=== PATIENT | female | born 1960 | race Caucasian/White ===

== ENCOUNTER → 2017-11-17 21:26 | Outpatient (CLI) | payer BC, SELFPAY | PROVIDERS: Family Provider Family Medicine; PCP Family Medicine; Visit Provider Obstetrics & Gynecology | DX: Z12.4 Encounter for screening for malignant neoplasm of cervix (principal) ==

== ENCOUNTER → 2017-12-01 08:38 | Outpatient (CLI) | payer BC, SELFPAY ==
--- NOTE | 2017-12-01 08:40 | US_ITS ---
STUDY: ULTRASOUND OF THE FEMALE PELVIS - COMPLETE REASON FOR EXAM: Female, 57 years old. Possible adnexal mass. LMP: The patient is perimenopausal. TECHNIQUE: Transabdominal and Transvaginal TECHNICAL QUALITY: Adequate. COMPARISON: None. FINDINGS: The uterus is anteverted and is in a midline position. The uterus measures 7.3 cm x 4.4 cm x 2.7 cm. Normal uterine cervix. The endometrium measures 4.0 mm in thickness, and is hyperechoic. There is no demonstrated endometrial mass. There is a 1.2 cm x 0.9 cm x 0.8 cm fibroid in the subendometrial region of the fundal portion of the uterus. 5 mm cluster of calcifications is seen in the lower uterine segment. I.U.D. - The patient does not have an I.U.D. The right ovary is visualized. The right ovary measures 2.9 cm x 2.0 cm x 1.2 cm. There is no right ovarian cyst or ovarian mass. There is no visualized right adnexal mass or complex lesion. There is normal arterial and normal venous vascularity. The left ovary is visualized. The left ovary measures 3.2 cm x 1.4 cm x 1.3 cm. There is no left ovarian cyst or ovarian mass. There is no visualized left adnexal mass or complex lesion. There is normal arterial and normal venous vascularity. There is no fluid in the cul-de-sac. The pre void volume of the bladder was 127.1 ml. Polycystic ovary disease: No. US/Transvaginal Non- IMPRESSION: Small uterine fibroid. No adnexal masses seen. Electronically Signed: Eric Dash MD at 15:52 EST Tel [phone], Service support ,
--- NOTE | 2017-12-01 08:40 | US_ITS ---
STUDY: ULTRASOUND OF THE FEMALE PELVIS - COMPLETE REASON FOR EXAM: Female, 57 years old. Possible adnexal mass. LMP: The patient is perimenopausal. TECHNIQUE: Transabdominal and Transvaginal TECHNICAL QUALITY: Adequate. COMPARISON: None. FINDINGS: The uterus is anteverted and is in a midline position. The uterus measures 7.3 cm x 4.4 cm x 2.7 cm. Normal uterine cervix. The endometrium measures 4.0 mm in thickness, and is hyperechoic. There is no demonstrated endometrial mass. There is a 1.2 cm x 0.9 cm x 0.8 cm fibroid in the subendometrial region of the fundal portion of the uterus. 5 mm cluster of calcifications is seen in the lower uterine segment. I.U.D. - The patient does not have an I.U.D. The right ovary is visualized. The right ovary measures 2.9 cm x 2.0 cm x 1.2 cm. There is no right ovarian cyst or ovarian mass. There is no visualized right adnexal mass or complex lesion. There is normal arterial and normal venous vascularity. The left ovary is visualized. The left ovary measures 3.2 cm x 1.4 cm x 1.3 cm. There is no left ovarian cyst or ovarian mass. There is no visualized left adnexal mass or complex lesion. There is normal arterial and normal venous vascularity. There is no fluid in the cul-de-sac. The pre void volume of the bladder was 127.1 ml. Polycystic ovary disease: No. US/Pelvic (Non ) IMPRESSION: Small uterine fibroid. No adnexal masses seen. Electronically Signed: Eric Dash MD at 15:52 EST Tel [phone], Service support ,
== END ==
PROVIDERS: Family Provider Family Medicine; PCP Family Medicine; Visit Provider Obstetrics & Gynecology
DX: N94.9 Unspecified condition associated with female genital organs and menstrual cycle (principal)
CPT/HCPCS: 76830; 76856; 93976

== ENCOUNTER → 2017-12-08 07:00 | Outpatient (CLI) | payer BC, SELFPAY ==
--- NOTE | 2017-12-08 07:06 | HPBI_ITS ---
MAMMOGRAPHY - BILATERAL SCREENING REASON FOR EXAM: Female, 57 years old. Routine annual screening examination. PERTINENT HISTORY: Non-contributory. TECHNIQUE: Digital bilateral breast solitario (3D mammographic acquisition) in the CC and MLO projections. 2-D mediolateral oblique (MLO) and craniocaudad (CC) views of both breasts were obtained. CAD: Full Field Digital Mammography with Computer Added Detection was performed. COMPARISON: None. Baseline examination. FINDINGS: Breast Composition: There are scattered areas of fibroglandular density. There are no dominant masses or suspicious calcifications. No other significant abnormalities are identified. HPBI/SCREENING MAMM (CAD), BILAT IMPRESSION: Negative screening mammogram. Yearly followup mammogram recommended. (A) ASSESSMENT CATEGORY: BIRADS Category 1: Negative. A letter regarding these results will be sent to the patient by the facility within 30 days. Approximately 10% of breast cancers are not detected by mammography. A normal mammogram should not delay biopsy of a clinically suspicious abnormality. [id number] Electronically Signed: Eric Dash MD at 8:19 EST Tel [phone], Service support ,
== END ==
PROVIDERS: Family Provider Family Medicine; PCP Family Medicine; Visit Provider Obstetrics & Gynecology
DX: Z01.411 Encounter for gynecological examination (general) (routine) with abnormal findings (principal); Z12.31 Encounter for screening mammogram for malignant neoplasm of breast
CPT/HCPCS: 77063; 77067

== ENCOUNTER 2017-12-16 12:05 | Day surgery (SDC) | payer BC, SELFPAY ==
[2017-12-16] VITALS (7 sets, daily range): BP systolic 122–141; BP diastolic 75–85; PULSE 69–81; RESP 14–18; TEMP 36.2–36.8; O2SAT 92–99; BMI 26.7
[2017-12-16] MEDS: Cefazolin 2 GM in 0.9% Normal Saline 100 ML IV (14:32)
[2017-12-16] MEDS: Bupiv/Epi 0.5% Mpf 30 ML Vial (15:19)
[2017-12-16] MEDS: Mupirocin Ointment 22gm Tube 1 APPLIC (15:41)
--- NOTE | 2017-12-16 15:47 | PCM.DC.ORTHO ---
Discharge Diet: No Restrictions - Remove dressings in 4 days and apply Band-Aids to incision sites, weight-bear as tolerated right leg, elevate ice ankle pumps, pain medication as tolerated, call with concerns, follow-up in 2 weeks, may shower in 4 days and get incision wet Discharge Activity: May Not Drive May shower in (days): 1 Ice area for (Minutes): 20 - Every hour while awake. Weight Bearing Status: Weight bearing as tolerated Keep extremity elevated above heart level: Operative Extremity Call your doctor if your incision/area has: Continuous Slow Oozing, Sudden Increased Bleeding, Increased Pain/ Swelling, Increased Redness, Foul Smelling Discharge Call your doctor if you observe: Fever of 101 or Higher, Coldness, Increased Pain, Numbness or Tingling, Change in Color, Calf discomfort Allergies/Adverse Reactions: Allergies Sulfa (Sulfonamide Antibiotics) Allergy (Mild, Verified 12/07/17 15:46) Upset Stomach Medications to take at Discharge Multivitamins,Therapeutic [Multivitamin] 1 tab PO DAILY 11/15/13 Vitamin D3 2 tab PO DAILY 11/15/13 Atorvastatin Calcium [Lipitor] 10 mg PO QHS 12/05/14 aspirin 81 mg chewable tablet 81 mg PO DAILY 11/17/17 esomeprazole magnesium 40 mg capsule,delayed release 40 mg PO DAILY 30 Days #30 11/17/17 metoprolol tartrate 25 mg tablet 25 mg PO BID 90 Days #180 11/17/17 venlafaxine ER 75 mg capsule,extended release 24 hr 75 mg PO QHS #30 cap 11/17/17 Oxycodone HCl/Acetaminophen [Percocet 5/325] 1 - 2 tablet PO Q6H PRN PRN 5 Days #60 tablet 12/16/17 The following prescriptions were given: Oxycodone HCl/Acetaminophen [Percocet 5/325] 1 - 2 tablet PO Q6H PRN PRN 5 Days #60 tablet PRN Reason: Pain Primary Care Physician: Tahira Pacheco MD [Primary Care Provider] - Please Follow Up With: Carla Phoenix, - [phone]
--- NOTE | 2017-12-16 15:53 | OP.PCM_ITS ---
Report of Operation Date of Procedure: 12/16/17 Pre-Operative Diagnosis: right knee medial and lateral meniscus tears, extensive synovitis Post-Operative Diagnosis: same Surgery/Procedure Performed:: sark, pmm, plm, extensive synovectomy Type of Anesthesia:: General Anesthesiologist: Arturo Dinero Estimated Blood Loss (mL): none Fluids Replaced: 1100ml lr Description of Procedure: Preoperative note 57-year-old patient with right knee pain clicking instability. MRI confirms lateral meniscus medial meniscus tears. Failed patient failed conservative treatment elected proceed with right knee arthroscopy repair is indicated. Risks benefits and alternatives surgery were discussed with patient. Risks including but not limited to blood loss, blood clot, infection, neurovascular injury, failure procedure, loss of life and loss of limb. Patient is aware like proceed with right knee arthroscopy repair is indicated. Operative note Patient seen and examined preoperative holding area. Right knee was marked. Patient brought to the operating room placed supine on the operating table. Sign, anesthesia, antibiotics were administered. The right leg was prepped and draped in usual sterile fashion with a tourniquet around her upper thigh. All bony prominences well-padded SCDs placed on her contralateral limb. We marked out our portals for our anterolateral anteromedial portal placement. Leg was elevated exsanguinated tourniquet was raised her pressure of 275 torr. Timeout was performed. We then began with our diagnostic arthroscopy. We created an anterior left lateral portal and were able to visualize patella femoral joint. The cartilage surfaces were intact. We then moved to the medial joint line. We created an anterior medial portal under direct visualization. We then probed the medial meniscus we had a little bit of fraying on the root which was gently debrided back with a shaver and a basket. The rest the meniscus was intact. The medial femoral condyle medial tibial plateau were basically intact there is a little bit of fibrillated changes in medial tibial plateau. ACL PCL were present within the notch. The patient had a lateral discoid meniscus with a tear extending from the mid body anterior. We use a combination of a biter and a shaver to resect the unstable piece of the discoid to a stable remnant. We then reinserted the probe in both the medial lateral meniscus to ensure that there was no further instability of the meniscus and there he has stable rim the remaining which we did have. There is extensive synovitis in the anterior medial anterolateral gutters which was removed with a shaver. There were no loose bodies in the gutters. We then irrigated the knee with copious amounts of sterile saline. The portals were closed with interrupted 4-0 nylon stitches. Sterile dressings were applied the tourniquet was deflated for total working time of 40 minutes. The patient tolerated procedure well there are no complications. Patient was transferred to recovery room in stable condition. Postoperative note Weight-bear as tolerated Hospital pharmacy has prescriptions as Call with increased pain numbness tingling further issues arise Follow-up in 2 weeks Patient was given a This note was generated with [employer] dictation software. It may contain incorrect words, spelling, and punctuation that were not noted in checking the note before signing.
== END 2017-12-16 18:32 | disposition home or self-care (01) ==
LOC: SDC 12:06 → AC 12:08
PROVIDERS: Family Provider Family Medicine; PCP Family Medicine; Visit Provider Orthopaedic Surgery
PROC: (CPT 29870; principal; 2017-12-16 13:25)
DX: M23.203 Derangement of unspecified medial meniscus due to old tear or injury, right knee (principal); M23.261 Derangement of other lateral meniscus due to old tear or injury, right knee; M65.88 Other synovitis and tenosynovitis, other site; F41.9 Anxiety disorder, unspecified; I10 Essential (primary) hypertension; G25.81 Restless legs syndrome; K21.9 Gastro-esophageal reflux disease without esophagitis; E78.00 Pure hypercholesterolemia, unspecified; Z79.82 Long term (current) use of aspirin; Z79.899 Other long term (current) drug therapy; Z87.891 Personal history of nicotine dependence
CPT/HCPCS: 01400; 29880; J7120; J2405

== ENCOUNTER → 2018-04-13 08:38 | Outpatient (CLI) | payer BC, SELFPAY ==
--- NOTE | 2018-04-13 08:45 | RAD_ITS ---
STUDY: X-RAY - PELVIS AND LEFT HIP REASON FOR EXAM: Left hip pain, no specific injury. TECHNIQUE: Radiological exam, hip, unilateral, with pelvis when performed; 2 or 3 views. COMPARISON: None. FINDINGS: There is a small pelvic phlebolith. Normal bilateral iliac wings, sacroiliac joints and visualized sacrum. Normal bilateral superior and inferior pubic rami. Normal pubic symphysis. Normal bilateral ischial tuberosities. Normal visualized femoral head. Normal acetabulum. Normal hip joint. RAD/Hip 2-3 Views with Pelvis IMPRESSION: Normal x-ray examination of the pelvis and left hip. Electronically Signed: Mahesh Chanel MD at 10:16 EDT Tel , Service support ,
== END ==
PROVIDERS: Family Provider Family Medicine; PCP Family Medicine; Visit Provider Orthopaedic Surgery
DX: M25.552 Pain in left hip (principal)
CPT/HCPCS: 73502

== ENCOUNTER → 2019-03-29 | Outpatient (CLI) | payer BC, SELFPAY ==
[2019-01-11 11:14] VITALS: BMI 27.4
--- NOTE | 2019-03-29 13:20 | BI_ITS ---
MAMMOGRAPHY - BILATERAL SCREENING 3-D TOMOSYNTHESIS REASON FOR EXAM: Female, 58 years old. Bilateral Screening 3-D tomosynthesis PERTINENT HISTORY: No significant family history. TECHNIQUE: 2-D mammograms and 3-D Tomosynthesis of the breast (s) were performed. CAD was performed. COMPARISON: December 08, 2017 FINDINGS: The breast composition is almost entirely fat. Scattered benign calcifications are seen. No dense spiculated masses or suspicious microcalcifications are identified. No architectural distortion is identified. There is no skin thickening or retraction. There has been no significant change since the prior study. BI/SCREEN MAMM (CAD) W/LARRY BILAT IMPRESSION: No mammographic signs of malignancy. Routine yearly mammograms recommended. ASSESSMENT CATEGORY: BIRADS Category 2: Benign. A letter regarding these results will be sent to the patient by the facility within 30 days. FOLLOW UP RECOMMENDATION: Yearly follow up mammogram recommended. (A) Approximately 10% of breast cancers are not detected by mammography. A normal mammogram should not delay biopsy of a clinically suspicious abnormality. Electronically Signed: Jonathan Wilson MD at 17:42 EDT , Service support ,
== END | disposition home or self-care (01) ==
LOC: OPBI 13:19
PROVIDERS: Family Provider Family Medicine; PCP Family Medicine; Referring Provider Obstetrics & Gynecology; Visit Provider Obstetrics & Gynecology
DX: Z12.31 Encounter for screening mammogram for malignant neoplasm of breast (principal)
CPT/HCPCS: 77063; 77067

== ENCOUNTER → 2020-04-03 10:04 | Outpatient (CLI) | payer BC, SELFPAY ==
[2019-01-11 11:14] VITALS: BMI 27.4
[2020-02-07 14:03] VITALS: BMI 27.4
--- NOTE | 2020-04-03 10:05 | BI_ITS ---
MAMMOGRAPHY - BILATERAL SCREENING REASON FOR EXAM: Female, 59 years old. Routine annual screening examination. PERTINENT HISTORY: Non-contributory. TECHNIQUE: Digital bilateral breast larry (3D mammographic acquisition) in the CC and MLO projections. 2-D mediolateral oblique (MLO) and craniocaudad (CC) views of both breasts were obtained. CAD: Full Field Digital Mammography with Computer Added Detection was performed. COMPARISON: Comparison is made with prior examination dated March 29, 2019 and December 08, 2017. FINDINGS: Breast Composition: There are scattered areas of fibroglandular density. There are no dominant masses or suspicious calcifications. Stable benign-appearing bilateral axillary lymph nodes. No other significant abnormalities are identified. There has been no significant change since the prior study. BI/SCREEN MAMM (CAD) W/LARRY BILAT IMPRESSION: Stable bilateral screening mammogram. Yearly follow-up mammogram recommended. (A) ASSESSMENT CATEGORY: BIRADS Category 2: Benign. A letter regarding these results will be sent to the patient by the facility within 30 days. Approximately 10% of breast cancers are not detected by mammography. A normal mammogram should not delay biopsy of a clinically suspicious abnormality. [id number] Electronically Signed: Eric Dash, at 8:25 EDT , Service support ,
== END ==
PROVIDERS: Family Provider Family Medicine; PCP Family Medicine; Referring Provider Obstetrics & Gynecology; Visit Provider Obstetrics & Gynecology
DX: Z12.31 Encounter for screening mammogram for malignant neoplasm of breast (principal)
CPT/HCPCS: 77063; 77067

== ENCOUNTER → 2021-05-28 09:56 | Outpatient (CLI) | payer BC, SELFPAY ==
--- NOTE | 2021-05-28 09:58 | BI_ITS ---
MAMMOGRAPHY - BILATERAL SCREENING REASON FOR EXAM: Female, 60 years old. Routine annual screening examination. PERTINENT HISTORY: Non-contributory. TECHNIQUE: Digital bilateral breast larry (3D mammographic acquisition) in the CC and MLO projections. 2-D mediolateral oblique (MLO) and craniocaudad (CC) views of both breasts were obtained. CAD: Full Field Digital Mammography with Computer Added Detection was performed. COMPARISON: Comparison is made with prior study dated 04/03/2020 and 03/29/2019. FINDINGS: Breast Composition: There are scattered areas of fibroglandular density. There are no dominant masses or suspicious calcifications. Stable small benign appearing bilateral axillary lymph nodes. No other significant abnormalities are identified. There has been no significant change since the prior study. BI/SCRN MAMM (CAD)W/LARRY BILAT IMPRESSION: Stable bilateral screening mammogram. Yearly follow-up mammogram recommended. (A) ASSESSMENT CATEGORY: BIRADS Category 2: Benign. A letter regarding these results will be sent to the patient by the facility within 30 days. Approximately 10% of breast cancers are not detected by mammography. A normal mammogram should not delay biopsy of a clinically suspicious abnormality. [id number] Electronically Signed: Eric Dash MD at 11:03 EDT , Service support ,
== END ==
PROVIDERS: PCP Family Medicine; Referring Provider Nurse Practitioner Women's Health; Visit Provider Nurse Practitioner Women's Health
DX: Z12.31 Encounter for screening mammogram for malignant neoplasm of breast (principal)
CPT/HCPCS: 77063; 77067

== ENCOUNTER 2021-12-31 10:26 | Outpatient (CLI) | payer BC, SELFPAY ==
[2021-12-31 12:27] LABS: Erythrocyte Sedimentation Rate 12 mm/hr (0-30)
[2021-12-31 13:08] LABS: Rheumatoid Factor < 10.0 IU/mL (<15)
[2022-01-01 21:27] LABS: Anti-Nuclear Antibody Test Negative (.)
[2022-01-06 14:31] LABS: HLA B27 Negative (.)
== END 2021-12-31 23:59 | disposition home or self-care (01) ==
LOC: MTLAB 10:28
PROVIDERS: PCP Family Medicine; Referring Provider Podiatrist; Visit Provider Podiatrist
DX: M06.9 Rheumatoid arthritis, unspecified (principal)
CPT/HCPCS: 36415; 81374; 84550; 85652; 86038; 86140; 86431

== ENCOUNTER → 2022-07-29 | Outpatient (CLI) | payer BC, SELFPAY ==
--- NOTE | 2022-07-29 08:54 | BI_ITS ---
MAMMOGRAPHY - BILATERAL SCREENING REASON FOR EXAM: Female, 62 years old. Routine annual screening examination. PERTINENT HISTORY: Non-contributory. TECHNIQUE: Digital bilateral breast larry (3D mammographic acquisition) in the CC and MLO projections. 2-D mediolateral oblique (MLO) and craniocaudad (CC) views of both breasts were obtained. CAD: Full Field Digital Mammography with Computer Added Detection was performed. COMPARISON: Comparison is made with prior study 05/28/2021 and 04/03/2020. FINDINGS: Breast Composition: There are scattered areas of fibroglandular density. There are no dominant masses or suspicious calcifications. Stable small benign-appearing bilateral axillary lymph nodes. No other significant abnormalities are identified. There has been no significant change since the prior study. BI/SCRN MAMM (CAD)W/LARRY BILAT IMPRESSION: Stable bilateral screening mammogram. Yearly follow-up mammogram recommended. (A) ASSESSMENT CATEGORY: BIRADS Category 2: Benign. A letter regarding these results will be sent to the patient by the facility within 30 days. Approximately 10% of breast cancers are not detected by mammography. A normal mammogram should not delay biopsy of a clinically suspicious abnormality. [id number] Electronically Signed: Eric Dash MD at 10:23 EDT ,
== END | disposition home or self-care (01) ==
LOC: OPBI 08:53
PROVIDERS: PCP Family Medicine; Visit Provider Obstetrics & Gynecology
DX: Z12.31 Encounter for screening mammogram for malignant neoplasm of breast (principal)
CPT/HCPCS: 77063; 77067

== ENCOUNTER → 2023-01-19 | Outpatient (CLI) | payer BC, SELFPAY ==
[2023-01-24 14:08] LABS: HPV APTIMA, High Risk Negative (Negative)
== END | disposition home or self-care (01) ==
PROVIDERS: PCP Family Medicine; Visit Provider Obstetrics & Gynecology
DX: Z01.419 Encounter for gynecological examination (general) (routine) without abnormal findings (principal)
CPT/HCPCS: 87624; 88175; G0145

== ENCOUNTER → 2023-01-28 | Outpatient (CLI) | payer BC, SELFPAY ==
--- NOTE | 2023-01-28 17:51 | US_ITS ---
STUDY: ULTRASOUND OF THE FEMALE PELVIS - COMPLETE REASON FOR EXAM: Female, 62 years old. Cervical polyp LMP: Patient is postmenopausal. TECHNIQUE: Transabdominal and Transvaginal TECHNICAL QUALITY: Adequate. COMPARISON: Comparison is made with prior study dated December 01, 2017. FINDINGS: The uterus is anteverted and is in a midline position. The uterus measures 6.1 cm x 3 cm x 3.8 cm. 3 mm x 3 mm x 2 mm mildly echogenic nodule at the level of the uterine cervix. This may represent a polyp. The endometrium measures 2 mm in thickness, and is hyperechoic. There is no demonstrated endometrial mass. There is no demonstrated myometrial mass. I.U.D. - The patient does not have an I.U.D. The right ovary is visualized. The right ovary measures 2.3 cm x 1.7 cm x 1 cm. There is no right ovarian cyst or ovarian mass. There is no visualized right adnexal mass or complex lesion. There is normal arterial and normal venous vascularity. The left ovary is visualized. The left ovary measures 2.1 cm x 1.7 cm x 1.3 cm. There is no left ovarian cyst or ovarian mass. There is no visualized left adnexal mass or complex lesion. There is normal arterial and normal venous vascularity. There is no fluid in the cul-de-sac. The pre void volume of the bladder was 115 ml. US/Transvaginal Non- IMPRESSION: Questionable 3 mm x 3 mm x 2 mm polyp in the cervix. Electronically Signed: Eric Dash MD at 15:11 EDT ,
== END | disposition home or self-care (01) ==
LOC: US 17:50
PROVIDERS: PCP Family Medicine; Referring Provider Obstetrics & Gynecology; Visit Provider Obstetrics & Gynecology
DX: Z78.0 Asymptomatic menopausal state (principal); N84.1 Polyp of cervix uteri
CPT/HCPCS: 76830

== ENCOUNTER → 2023-02-24 | Outpatient (CLI) | payer BC, SELFPAY ==
--- NOTE | 2023-02-24 | ECC_PTH ---
PATIENT: CHARI MARTIN [facility][id number] AGE/SX: 62/F ROOM: RE02/24/[address]: Dr. Maria Dolores Chisholm MD : 1960 BED: DIS: 02/24/2023 SPEC #: [id number] RECD: 02/24/23 17:27 STATUS: RENETTA REDaisy #: [id number] RICKEY: 02/24/23 00:[address]: Maria Dolores Chisholm DEPT: SURGICAL PATHOLOGY RECD BY: Renard Vital ENTERED: 02/25/23 10:47 SP TYPE: ECC OTHR DR: Dr. Tahira Ward, DO Tissues: Endocervical Procedures: Surgery Specimen Level IV HEADER OPERATION: Polypectomy PRE-OP DIAGNOSIS: Endocervical polyp TISSUE SUBMITTED: Endocervical polyp MICROSCOPIC DIAGNOSIS Endocervical polyp, biopsy: Benign endocervical polyp, mildly inflamed. AM:pedro luis 02/26/2023 MICROSCOPIC DESCRIPTION Slides are reviewed. GROSS DESCRIPTION Received is one container labeled with the patient's name and not further designated. The specimen consists of a single irregular fragment of june tissue measuring 0.8 x 0.3 x 0.2 cm. The specimen is totally submitted in one cassette. / AM:pedro luis 02/25/2023 TC:5 CPT: 40030
== END | disposition home or self-care (01) ==
PROVIDERS: PCP Family Medicine; Visit Provider Obstetrics & Gynecology
DX: N84.1 Polyp of cervix uteri (principal)
CPT/HCPCS: 88305

== ENCOUNTER → 2024-02-03 | Outpatient (CLI) | payer OTHER, SELFPAY ==
--- NOTE | 2024-02-03 09:12 | BI_ITS ---
MAMMOGRAPHY - BILATERAL SCREENING REASON FOR EXAM: Female, 63 years old. Routine annual screening examination. PERTINENT HISTORY: Non-contributory. TECHNIQUE: Digital bilateral breast larry (3D mammographic acquisition) in the CC and MLO projections. 2-D mediolateral oblique (MLO) and craniocaudad (CC) views of both breasts were obtained. CAD: Full Field Digital Mammography with Computer Added Detection was performed. COMPARISON: Comparison is made with prior study July 29, 2022 and May 28, 2021. FINDINGS: Breast Composition: There are scattered areas of fibroglandular density. There are no dominant masses or suspicious calcifications. Stable small benign-appearing bilateral axillary lymph nodes. No other significant abnormalities are identified. There has been no significant change since the prior study. BI/SCRN MAMM (CAD)W/LARRY BILAT IMPRESSION: Stable bilateral screening mammogram. Yearly follow-up mammogram recommended. (A) ASSESSMENT CATEGORY: BIRADS Category 2: Benign. A letter regarding these results will be sent to the patient by the facility within 30 days. Approximately 10% of breast cancers are not detected by mammography. A normal mammogram should not delay biopsy of a clinically suspicious abnormality. [id number] Electronically Signed: rEic Dahs MD at 10:03 EDT ,
== END | disposition home or self-care (01) ==
LOC: OPBI 09:12
PROVIDERS: PCP Family Medicine; Referring Provider Obstetrics & Gynecology; Visit Provider Obstetrics & Gynecology
DX: Z12.31 Encounter for screening mammogram for malignant neoplasm of breast (principal)
CPT/HCPCS: 77063; 77067

== ENCOUNTER → 2025-02-15 | Outpatient (CLI) | payer OTHER, SELFPAY ==
--- NOTE | 2025-02-15 09:50 | BI_ITS ---
EXAM: SCRN MAMM (CAD)W/LARRY BILAT 02/15/2025 CLINICAL HISTORY: F, Age 64 y/o , SCREENING FOR BREAST CANCER TECHNIQUE: Bilateral screening digital breast tomosynthesis with 2D and 3D images. Computer aided detection. COMPARISON: Prior exam(s) dated 02/03/2024, 07/29/2022, 05/28/2021. FINDINGS: TISSUE DENSITY: The breast tissue is composed of scattered area of fibroglandular density. Bilateral Breast Mammographic Findings: No significant masses, calcifications or other abnormalities are identified. BI/SCRN MAMM (CAD)W/LARRY BILAT IMPRESSION: Right Breast: BIRADS 1 NEGATIVE. Left Breast: BIRADS 1 NEGATIVE. OVERALL FINAL ASSESSMENT: BIRADS 1 NEGATIVE. RECOMMENDATION: Routine annual follow-up in 1 Year A letter with findings and recommendations will be mailed to the patient. Reading Location: [id number]
== END | disposition home or self-care (01) ==
LOC: OPBI 09:49
PROVIDERS: PCP Family Medicine; Referring Provider Obstetrics & Gynecology; Visit Provider Obstetrics & Gynecology
DX: Z12.31 Encounter for screening mammogram for malignant neoplasm of breast (principal)
CPT/HCPCS: 77063; 77067